=== PATIENT | male | born 1990 | race Caucasian/White ===

== ENCOUNTER 2016-08-31 23:47 | Emergency (ER) | payer OTHER ==
[~2016-08-31] VITALS: Ht 175.3 cm; Wt 81.6 kg
[2016-08-31 23:50] VITALS: BP 118/66; PULSE 18; RESP 18; TEMP 97.4; O2SAT 99
--- NOTE | 2016-09-01 | NUR ---
Patient to ER Chair 1 to gown for evaluation. Side rails up. Report given to ORTIZ Okeefe.
--- NOTE | 2016-09-01 00:05 | NUR ---
Patient was BIB [employer] with no medical complain and here for medical cleacene. Will continue to monitor patient.
--- NOTE | 2016-09-01 00:19 | NUR ---
ER at bedside examining patient.
[2016-09-01 00:20] VITALS: BP 118/66; PULSE 18; RESP 18; TEMP 97.4; O2SAT 99
--- NOTE | 2016-09-01 00:20 | NUR ---
Patient was discharge with [facility] and verbalizes understanding. ER MD discussed with patient the results and treatment provided. Patient in stable condition. Patient educated on pain management and to follow up with PMD. Pain Scale 0/1. Opportunity for questions provided and answered.
== END 2016-09-01 00:20 ==
LOC: SED 23:47
DX: Z02.89 Encounter for other administrative examinations (principal); J45.909 Unspecified asthma, uncomplicated
CPT/HCPCS: 81025; 99283